=== PATIENT | male | born 1960 | race Caucasian/White ===

== ENCOUNTER 2017-03-13 18:31 | Emergency (ER) | payer OTHER ==
--- NOTE | 2017-03-13 18:37 | EDPHY ---
HPI/HX/ROS/PE/MDM Narrative: CHIEF COMPLAINT: Altered mental status HPI: This patient is a healthy 56 year old male arriving with his complaining of an episode of altered mental status at dinner this evening, about 30 minutes ago. His at bedside states he began having difficulty communicating words and sentences and that he was having a hard time reading and comprehending. A nurse and doctor who live nearby assessed the patient and recommended he present to the emergency department for further evaluation. He has never had an episode like this in the past, and is generally in "excellent health". He returned last night from a two week meditation retreat in [place], [place]. Today, he has had four beers since noon, which is more than his usual alcohol consumption. He does not take any prescription medications. The patient is currently feeling well, and feels his speech is normal. He has no complaints at this time. No fever, chills, vomiting, chest pain, shortness of breath, or other associated symptoms. REVIEW OF SYSTEMS: Aside from elements discussed in the HPI, a comprehensive 10-point review of systems was reviewed and is negative. PMH: Denies. SOCIAL HISTORY: Lives in [place]. . at bedside. Real Estate Representative. PHYSICAL EXAM: General:Patient is alert, in no acute distress. ENT:Eyes are normal to inspection. ENT inspection normal. Neck: Normal inspection. Full range of motion. Respiratory:No respiratory distress. Breath sounds normal bilaterally. Cardiovascular: Regular rate and rhythm. Strong peripheral pulses. Normal cap refill. Abdomen:The abdomen is nontender to palpation. There are no peritoneal signs. There are normal bowel sounds. Back: Normal to inspection. No tenderness to palpation. Skin: Normal color. No rash. Warm and dry. Extremities: Normal appearance. Full range of motion. Neuro: Oriented x3. Normal motor function. Normal sensory function. No pronator drift. Face symmetrical. Portions of this note were transcribed by an ED scribe. I personally performed the history, physical exam, and medical decision making; and confirm the accuracy of the information in the transcribed note. ED Course: 56 year old male presents following an episode of altered mental status at dinner this evening. Plan for EKG, I-Stat. Plan for CT head, labs including CBC, BMP, Troponin, EtOH. Plan for fluid administration. EKG was ordered and interpreted by myself. Please see [facility] system for official reading. Sinus rhythm, rate 81. IRBBB. I-Stat results within normal limits. EtOH elevated at 246. Labs otherwise unremarkable. 19:[address] Bansal, radiologist. CT head negative for acute processes. Plan to discharge home in good condition. Follow up and return precautions discussed. The patient is comfortable with this plan. MDM: This patient presents with what sounds like altered mental status, consisting primarily of slurred speech and mild confusion. The patient has no complaints or focal neuro deficits on multiple exams performed in the ED. His CTH is negative for abnormality. His EtOH level is quite elevated, and this seems represents a likely etiology for his symptoms since they are consistent with alcohol intoxication. I explained these results to the patient and his . They are satisfied to go home without further workup. The patient's seems rather unhappy with the patient regarding his alcohol use. - Data Points Imaging Results: Imaging Impressions Head CT 03/13/17 18:39 Impression: Normal CT scan of the head. Results called and discussed with Zia Perez MD on 03/13/2017 at 19:43 Laboratory Results: Laboratory Results 03/13/17 18:35 03/13/17 18:35 03/13/17 03/13/17 03/13/17 18:36 18:35 18:35 WBC 5.87 10^3/uL 10^3/uL (3.80-9.50) RBC 4.62 10^6/uL 10^6/uL (4.40-6.38) Hgb 14.9 g/dL g/dL (13.7-17.5) POC Hgb 14.3 gm/dL gm/dL (13.7-17.5) Hct 41.0 % % (40.0-51.0) POC Hct 42 % % (40-51) MCV 88.7 fL fL (81.5-99.8) MCH 32.3 pg pg (27.9-34.1) MCHC 36.3 g/dL g/dL (32.4-36.7) RDW 11.9 % % (11.5-15.2) Plt Count 183 10^3/uL 10^3/uL (150-400) MPV 9.6 fL fL (8.7-11.7) Neut % (Auto) 54.8 % % (39.3-74.2) Lymph % (Auto) 34.4 % % (15.0-45.0) [place] % (Auto) 8.0 % % (4.5-13.0) Eos % (Auto) 1.7 % % (0.6-7.6) Baso % (Auto) 0.9 % % (0.3-1.7) Nucleat RBC Rel Count 0.0 % % (0.0-0.2) Absolute Neuts (auto) 3.22 10^3/uL 10^3/uL (1.70-6.50) Absolute Lymphs (auto) 2.02 10^3/uL 10^3/uL (1.00-3.00) Absolute Monos (auto) 0.47 10^3/uL 10^3/uL (0.30-0.80) Absolute Eos (auto) 0.10 10^3/uL 10^3/uL (0.03-0.40) Absolute Basos (auto) 0.05 10^3/uL 10^3/uL (0.02-0.10) Absolute Nucleated RBC 0.00 10^3/uL 10^3/uL (0-0.01) Immature Gran % 0.2 % % (0.0-1.1) Immature Gran # 0.01 10^3/uL 10^3/uL (0.00-0.10) POC Sodium 147 mEq/L H mEq/L (134-144) Sodium 147 mEq/L H mEq/L (134-144) POC Potassium 4.1 mEq/L mEq/L (3.3-5.0) Potassium 4.5 mEq/L mEq/L (3.5-5.2) POC Chloride 106 mEq/L mEq/L (97-110) Chloride 107 mEq/L mEq/L (97-110) Carbon Dioxide 27 mEq/l mEq/l (22-31) Anion Gap 13 mEq/L mEq/L (8-16) POC BUN 14 mg/dL mg/dL (7-23) BUN 15 mg/dL mg/dL (7-23) Creatinine 0.9 mg/dL mg/dL (0.7-1.3) POC Creatinine 1.0 mg/dL mg/dL (0.7-1.3) Estimated GFR > 60 Glucose 72 mg/dL mg/dL (70-100) POC Glucose 77 mg/dL mg/dL (70-100) Calcium 9.6 mg/dL mg/dL (8.5-10.4) Troponin I < 0.012 ng/mL ng/mL (0-0.034) Ethyl Alcohol 246 mg/dL H mg/dL (0-10) Medications Given: Discontinued Medications Sodium Chloride (Ns) 1,000 mls @ 0 mls/hr IV ONCE ONE; Wide Open PRN Reason: Protocol Stop: 03/13/17 18:40 Last Admin: 03/13/17 18:49 Dose: 1,000 mls Point of Care Test Results: 03/13/17 18:36 POC Sodium 147 H POC Potassium 4.1 POC Chloride 106 POC BUN 14 POC Creatinine 1.0 POC Glucose 77 General Time Seen by Provider: 03/13/17 18:32 Initial Vital Signs: Initial Vital Signs Temperature (C) 36.9 C 03/13/17 18:35 Heart Rate 93 03/13/17 18:35 Respiratory Rate 16 03/13/17 18:35 Blood Pressure 129/84 H 03/13/17 18:35 O2 Sat (%) 91 L 03/13/17 18:35 O2 Delivery Mode Room Air Allergies/Adverse Reactions: No Known Allergies Allergy (Unverified 03/13/17 18:36) Home Medications: Medication Instructions Recorded NK [No Known Home Meds] 03/13/17 Departure - Departure Disposition: Home, Routine, Self-Care Clinical Impression: Alcohol intoxication, Altered mental status Condition: Good Instructions: Altered Mental Status (ED) Additional Instructions: 1. Follow up with your primary care provider for continuing concerns. 2. Return to the Emergency Department if you develop headache, numbness or weakness, slurred speech, confusion, or other worsening of condition. Referrals: NONE *PRIMARY CARE P,. [Primary Care Provider] - As per Instructions Marni Dsouza MD [Medical Doctor] - As per Instructions Report Scribed for: Zia Perez Report Scribed by: Juani Betts Date of Report: 03/13/17 Time of Report: 18:40
[2017-03-13 18:38] VITALS: RESP 16; TEMP 98.4
[2017-03-13] MEDS ORDERED: NS 1,000 ML IV ONE (18:39)
--- NOTE | 2017-03-13 18:59 | CPEKG ---
Heart Rate: 81 RR Interval: 741 P-R Interval: 164 QRSD Interval: 106 QT Interval: 384 QTC Interval: 446 P [place]: 77 QRS [place]: 73 T Wave [place]: 5 EKG Severity - ABNORMAL ECG - EKG Impression: SINUS RHYTHM EKG Impression: INCOMPLETE RIGHT BUNDLE BRANCH BLOCK Electronically Signed By: Prasanna Ellington 16-Mar-2017 06:23:10
[2017-03-13 19:12] LABS: % IMMATURE GRANULYOCYTES 0.2 % (0.0-1.1); ABSOLUTE IMMATURE GRANULOCYTES 0.01 10^3/uL (0.00-0.10); ADD DIFF? NO; ADD MORPH? NO; ADD SCAN? NO; ATYPICAL LYMPHOCYTE FLAG 0 (0-99); FRAGMENT RBC FLAG 0 (0-99); HEMOGLOBIN 14.9 g/dL (13.7-17.5); LEFT SHIFT FLG 0 (0-99); LIPEMIA HEMOLYSIS FLAG 90 (0-99); MEAN CELL HEMOGLOBIN 32.3 pg (27.9-34.1); MEAN CELL HEMOGLOBIN CONCENTR. 36.3 g/dL (32.4-36.7); MEAN CELL VOLUME 88.7 fL (81.5-99.8); MEAN PLATELET VOLUME 9.6 fL (8.7-11.7); PLATELET CLUMPS FLAG 0 (0-99); PLATELET COUNT 183 10^3/uL (150-400); RED BLOOD CELL COUNT 4.62 10^6/uL (4.40-6.38); RED CELL DISTRIBUTION WIDTH 11.9 % (11.5-15.2)
[2017-03-13 19:18] LABS: ANION GAP 13 mEq/L (8-16); CALCIUM 9.6 mg/dL (8.5-10.4); CARBON DIOXIDE 27 mEq/l (22-31); CHLORIDE 107 mEq/L (97-110); CREATININE 0.9 mg/dL (0.7-1.3); ETHANOL SERUM 246 mg/dL (0-10); GLOMERULAR FILTRATION RATE > 60; GLUCOSE 72 mg/dL (70-100); POTASSIUM 4.5 mEq/L (3.5-5.2); SODIUM 147 mEq/L (134-144)
[2017-03-13 19:29] LABS: TROPONIN I < 0.012 ng/mL (0-0.034)
[2017-03-13 20:09] VITALS: BP 126/78; PULSE 80; O2SAT 93
== END 2017-03-13 20:09 | disposition home or self-care (01) ==
DX: R41.82 Altered mental status, unspecified (principal); F10.129 Alcohol abuse with intoxication, unspecified; E86.9 Volume depletion, unspecified
CPT/HCPCS: 82947-QW; G0480